=== PATIENT | male | born 1945 | race Caucasian/White ===

== ENCOUNTER → 2016-07-29 | Outpatient (CLI) | payer OTHER ==
[~2016-07-29] VITALS: Ht 182.9 cm; Wt 93.9 kg
[~2016-07-29] MED LIST: APAP500 PO; ASPIR 8181 MG PO; DICLOFENAC SODI75 MG PO; FLEXERIL PO; INDAPAMIDE2.5 MG PO; KLOR-CON 1010 MEQ PO; LEXAPRO 10 MG T10 M1 PO; MOBIC7.5 MG PO; NORVASC10 MG PO; NORVASC5 MG PO; PERCOCET PO; POTASSIUM20 PO; QUINU10 PD PO; QUINU5 PD PO; UROXATRAL10 MG PO; ZYLOPRIM300 MG PO; [UNRECOGNIZED DRUG - OTHER]
--- NOTE | ~2016-07-29 | S ---
[facility] [place] [address] SURGICAL PATH RPT PROCEDURE Name: JUAN M VIDAL Room #: REG FRANCYKenji Stratton.#: [id number] Admission: 07/29/16 Date of : 45 Discharge: Report #: [id number] Path Case #: [id number] PATHOLOGY REPORT COLLECTION DATE: 07/29/2016 RECEIVED DATE: 07/29/2016 SUBMITTING PHYS: Dr. Richar Daniels OTHER PHYS: Dr. Catalina Wall SPECIMEN(S) RECEIVED: A.Duodenum bx B.Gastric bx * * * * * * * * * * * * FINAL DIAGNOSIS: A. Small bowel, duodenum, endoscopic biopsy: - Mild active peptic duodenitis. - Negative for sprue. B. Gastric mucosa, gastritis, endoscopic biopsy: - Mild reactive gastropathy. - Negative for intestinal metaplasia or atrophy. - Negative for Helicobacter pylori. COMMENT: Helicobacter pylori immunohistochemical stain performed on block B1 negative. (IUV:csd; d/t: 08/01/2016) PATHOLOGIST: Sarah Casillas M.D. REPORT ELECTRONICALLY SIGNED BY: Sarah Casillas M.D. DATE/TIME: 08/01/2016 16:09 * * * * * * * * * * * * GROSS PATHOLOGY: A. Received in formalin labeled "Juan M Vidal, duodenum, rule out sprue," are 4 segments of tellez soft tissue measuring 0.6 x 0.5 x 0.3 cm in aggregate dimensions and ranging from 0.2 to 0.5 cm in maximum dimension. The specimen is submitted entirely in cassette A1. B. Received in formalin labeled "Juan M Vidal, gastric bx - gastritis," are 4 segments of tellez soft tissue measuring 0.5 x 0.4 x 0.3 cm in aggregate dimensions and ranging from 0.3 to 0.5 cm in maximum dimension. The specimen is submitted entirely in cassette B1. (KAH; 07/29/2016) CLINICAL HISTORY: [facility] [place] [address] SURGICAL PATH RPT PROCEDURE Name: JUAN M VIDAL Room #: REG [facility].#: [id number] Admission: 07/29/16 Date of : 45 Discharge: Report #: [id number] Path Case #: [id number] Pre-op diagnosis: Anemia, heme positive stoolPost-op diagnosis: Gastritis, diverticulosis, internal hemorrhoids INITIAL CPT CODE(S): A; 51382 B; 33082, 57782 Professional services performed by [facility] at [address] , [place] [address] Technical services performed by [facility] at [address] [place] [address], [facility] [address] [address]. [facility] [address] [address] PHONE: [phone] DIRECTOR: Michael Clay M.D. * * * END OF REPORT * * *
--- NOTE | ~2016-07-29 | P ---
[facility] [place] [address] PROCEDURE REPORT Name: LARA KENDALL Room #: REG [facility] [id number] Admission: 07/29/16 Attend Phys: Richar Merritt Discharge: Date of : 45 Report #: [id number] THIS REPORT FOR: //name// CC: Richar Wall MD DATE OF SERVICE: 07/29/2016 PROCEDURE PERFORMED: Upper endoscopy with biopsies. HISTORY OF PRESENT ILLNESS: The patient is a 70-year-old male with a history of anemia. Hemoglobin was 10 last month. Iron was low. He had a Hemoccult positive stool. He denies any obvious bright red blood per rectum or melena. He does take aspirin and diclofenac on a regular basis. No previous history of upper endoscopy. He denies any nausea, vomiting or dysphagia. Plan is for EGD and colonoscopy today. DESCRIPTION OF PROCEDURE: The risks and benefits of the procedure were explained to the patient, those risks including but not limited to bleeding, perforation, the risk of sedation. He understood these risks and gave informed consent. Sedation was given using propofol per anesthesia. Next, using a standard Mindflashinon upper endoscope, the scope was placed in the patient's mouth and advanced under direct vision through the esophagus, stomach and into the second portion of the duodenum. The larynx was normal in appearance. The esophagus was normal throughout. The GE junction was normal. There was a mild gastritis noted in the mid body and antrum. Several small erosions were noted as well. No evidence of bleeding. Biopsies were obtained to rule out H. pylori. The pylorus was normal and patent. The duodenal bulb, first and second portion were all normal. Random biopsies of the second portion of the duodenum were also obtained to rule out the possibility of celiac sprue due to his history of anemia. The scope was then withdrawn and the procedure terminated. The patient tolerated the procedure well. IMPRESSION: 1. Mild gastritis with a few small antral erosions. 2. Otherwise, normal upper endoscopy. RECOMMENDATIONS: 1. Await biopsy results. 2. Would recommend daily PPI therapy. 3. We will proceed with colonoscopy next today. [address] [address] PROCEDURE REPORT Name: ENOCHLARA Room #: REG Kenji Lr#: [id number] Admission: 07/29/16 Attend Phys: Richar Merritt Discharge: Date of : 45 Report #: [id number] Thank you for allowing me to participate in his care. <ELECTRONICALLY SIGNED> By: Richar Daniels MD 07/29/16 1628 0836 1228 Richar Daniels MD /nt
--- NOTE | ~2016-07-29 | P ---
[facility] [place] [address] PROCEDURE REPORT Name: LARA KENDALL [facility] #: [facility] [id number] Admission: 07/29/16 Attend Phys: Richar Merritt Discharge: Date of : 45 Report #: [id number] THIS REPORT FOR: //name// CC: Richar Wall DATE OF SERVICE: 07/29/2016 DATE OF SERVICE: 07/29/2016 PROCEDURE PERFORMED: Colonoscopy. HISTORY OF PRESENT ILLNESS: The patient is a 70-year-old male with a history of iron deficiency anemia and Hemoccult positive stool last month. He denies any obvious bright red blood per rectum or melena. He had a previous history of colon polyp 4 years ago. No family history of colon cancer. Upper endoscopy showed mild gastritis with several gastric erosions. No active bleeding. DESCRIPTION OF PROCEDURE: The risks and benefits of the procedure were explained to the patient, those risks including but not limited to bleeding, perforation, the risk of sedation. He understood these risks and gave informed consent. Sedation was given using propofol per anesthesia. Next, a digital rectal exam was initially performed, which was normal. Next, using a standard Fujinon colonoscope, the scope was placed in the patient's anus and advanced under direct vision to the cecum. The overall prep was excellent. The cecum and ileocecal valve were normal in appearance. The ascending, transverse and descending colon were normal. Multiple diverticula were noted in the sigmoid colon, no evidence of inflammation, otherwise normal. The rectal mucosa was normal. On retroflexion, small nonbleeding internal hemorrhoids were noted, otherwise normal colonoscopy. The scope was then withdrawn and the procedure terminated. The patient tolerated the procedure well. IMPRESSION: 1. Sigmoid diverticulosis. 2. Small internal hemorrhoids, nonbleeding. 3. Otherwise, normal colonoscopy. RECOMMENDATIONS: Iron deficiency anemia and heme positive stool may be secondary to gastric erosions. There was no active bleeding on exam today, would recommend daily PPI therapy and monitoring hemoglobin. If he remains anemic over time, could consider an M2 capsule endoscopy for further evaluation of the small bowel. [address] [address] PROCEDURE REPORT Name: LARA KENDALL Simon Room #: REG [facility] Be#: [id number] Admission: 07/29/16 Attend Phys: Richar Merritt Discharge: Date of : 45 Report #: [id number] Thank you for allowing me to participate in his care. <ELECTRONICALLY SIGNED> By: Richar Daniels MD 07/29/16 1628 0904 1212 Richar Daniels MD /nt
== END ==
LOC: GI 07:02
DX: K29.70 Gastritis, unspecified, without bleeding (principal); K57.30 Diverticulosis of large intestine without perforation or abscess without bleeding; K64.8 Other hemorrhoids; F41.9 Anxiety disorder, unspecified; I10 Essential (primary) hypertension; Z86.010 Personal history of colon polyps; Z87.891 Personal history of nicotine dependence; F10.21 Alcohol dependence, in remission
CPT/HCPCS: 62110; 62900